=== PATIENT | male | born 1985 | race Hispanic/Latino ===

== ENCOUNTER 2017-09-29 13:14 | Emergency (ER) | payer SELFPAY ==
[~2017-09-29] VITALS: Ht 170.2 cm; Wt 86.2 kg
[2017-09-29] MEDS ORDERED: IBUPROFEN 400 MG TAB PO ONE (14:00)
[2017-09-29] MEDS ORDERED: ACETAMINOPHEN 325 MG TAB PO ONE (14:00)
--- NOTE | 2017-09-29 18:04 | Diagnostic Imaging Report ---
EXAM: XR CHEST 2 VIEWS DATE: 09/29/2017 1:58 PM INDICATION: COMPARISON: None FINDINGS: Lines and Tubes: None Heart and Mediastinum: No acute findings. Lungs and Pleura: No acute findings. Bones and Soft Tissues: No acute findings. IMPRESSION: 1. No acute cardiopulmonary findings. Signed by: Dr. Cornelio Welch MD on 09/29/2017 6:00 PM
== END 2017-09-29 16:58 | disposition home or self-care (01) ==
LOC: ER 13:14
DX: R50.9 Fever, unspecified (principal); R05 Cough; J09.X2 Influenza due to identified novel influenza A virus with other respiratory manifestations; F17.210 Nicotine dependence, cigarettes, uncomplicated
CPT/HCPCS: 71020; 87400; 99283